=== PATIENT | female | born 1935 | race Caucasian/White ===

== ENCOUNTER 2022-07-30 15:19 | Emergency (ER) | payer MEDICARE, SELFPAY ==
[2022-07-30 16:19] LABS: #Basophils 0.1 thou/uL (0.0-0.2); #Eosinphils 0.6 thou/uL (0.0-0.7); #Lymphocytes 1.5 thou/uL (1.20-3.40); #Neutrophils 4.8 thou/uL (1.40-6.50); %Basophils 0.7 % (0.0-1.0); %Lymphocytes 18.8 % (21.0-51.0); %Monocytes 12.8 % (0.0-10.0); %Neutrophils 60.7 % (42.0-75.0); Hemoglobin 14.8 g/dL (12.0-16.0); Mean Corpuscular HGB CONC 33.7 g/dL (32.0-36.0); Mean Corpuscular Hemoglobin 30.9 pg (27.0-31.0); Mean Corpuscular Volume 91.8 fl (78.0-98.0); Mean Platelet Volume 8.3 fL (7.4-10.4); Platelet Count 213 10x3/uL (130-400); RBC Distribution Width 12.5 % (11.5-14.5); Red Blood Cell (RBC) Count 4.78 mill/uL (4.20-5.40)
[2022-07-30 16:40] LABS: ALT (SGPT) 10 U/L (8-55); AST (SGOT) 20 U/L (5-34); Albumin 4.2 g/dL (3.4-4.8); Alkaline Phosphatase 90 U/L (40-110); Anion Gap 15 mmol/L (10-20); BUN (Urea Nitrogen) 19 mg/dL (9.8-20.1); Bilirubin, Total 0.7 mg/dL (0.2-1.2); Calc. Creatinine Clearance 0 mL/min (70-130); Calcium 10.1 mg/dL (7.8-10.44); Carbon Dioxide 24 mmol/L (23-31); Chloride 103 mmol/L (98-107); Estimated GFR 55; Globulin 3.6 g/dL (2.4-3.5); Glucose 95 mg/dL (83-110); Potassium 4.6 mmol/L (3.5-5.1); Protein, Total 7.8 g/dL (5.8-8.1); Sodium 137 mmol/L (136-145)
[2022-07-30 17:06] LABS: Bacteria/HPF 3+ HPF (None Seen); Bilirubin Negative (Negative); Blood, Urine Trace (Negative); Clarity Clear (Clear); Glucose, Urine (Dipstick) Normal (Negative); Ketone, Urine Negative (Negative); Leukocyte 500 Leu/uL (Negative); Nitrite Negative (Negative); Protein, Urine (Dipstick) Negative (Neg-Trace); Specific Gravity, Urine 1.017 (1.002-1.036); Urobilinogen Normal mg/dL (Less than 2)
[2022-07-30] MEDS ORDERED: cefTRIAXone (ROCEPHIN) 2 GM VIAL ONE (17:46)
== END 2022-07-30 19:28 | disposition home or self-care (01) ==
LOC: ERS 15:19
DX: N39.0 Urinary tract infection, site not specified (principal); E78.5 Hyperlipidemia, unspecified; I10 Essential (primary) hypertension; Z79.899 Other long term (current) drug therapy; Z79.82 Long term (current) use of aspirin
CPT/HCPCS: 36415; 70450; 71045; 80053; 81003; 81015; 83605; 84443; 84484; 85025; 87086; 93005; 96365; J0696

== ENCOUNTER 2022-12-30 07:31 | Day surgery (SDC) | payer MEDICARE ==
[2022-12-28 14:28] VITALS: BMI 29.2
[2022-12-28 14:34] LABS: Hematocrit 44.8 % (34.9-44.5); Hemoglobin 14.3 g/dL (12.0-15.5); Mean Corpuscular HGB CONC 31.9 g/dL (32.0-36.0); Mean Corpuscular Hemoglobin 29.2 pg (27.0-33.0); Mean Corpuscular Volume 91.4 fl (81.6-98.3); Mean Platelet Volume 10.6 fl (7.4-10.4); Platelet Count 255 10x3/uL (150-450); RBC Distribution Width 15.3 % (11.5-14.5); White Blood Cell (WBC) Count 6.5 10x3/uL (3.5-10.5)
[2022-12-28 15:07] LABS: Anion Gap 12 mmol/L (10-20); BUN (Urea Nitrogen) 17 mg/dL (9.8-20.1); Calc. Creatinine Clearance 32 mL/min (70-130); Calcium 9.7 mg/dL (7.8-10.44); Carbon Dioxide 27 mmol/L (23-31); Chloride 105 mmol/L (98-107); Estimated GFR 39; Glucose 92 mg/dL (83-110); Potassium 4.7 mmol/L (3.5-5.1); Sodium 139 mmol/L (136-145)
[2022-12-28 15:24] LABS: INR-International Normal Ratio 1.1; PTT 29.2 sec (22.0-33.0); Prothrombin Time 11.4 sec (9.5-12.1)
[2022-12-30] MEDS ORDERED: Ciprofloxacin Lactate/D5W 400 mg/200 ml Premix ONE (08:10)
[2022-12-30] MEDS ORDERED: Lidocaine 1% (PF) 30 ML VIAL ONE (08:10)
[2022-12-30] MEDS ORDERED: Clindamycin/D5W 900 mg/50 ml Premix Bag ONE (08:10)
[2022-12-30] MEDS ORDERED: Midazolam HCl 2 mg/2 ml Vial ONE (09:43)
[2022-12-30] MEDS ORDERED: Ketamine 50 MG/ML (10ML VIAL) ONE (09:43)
[2022-12-30] MEDS ORDERED: fentaNYL 50 mcg/mL 1 mL Vial ONE ×2 (09:43→14:18)
[2022-12-30] MEDS ORDERED: Propofol 500 MG/50 ML VIAL ONE (09:44)
[2022-12-30] MEDS ORDERED: Vasopressin 20 UNITS/ML VIAL ONE (09:44)
[2022-12-30] MEDS ORDERED: Dexmedetomidine 200 MCG/2 ML VIAL ONE (09:44)
[2022-12-30] MEDS ORDERED: LevoFLOXacin 500 mg/D5W 100 ML BAG ONE ×2 (10:55→10:59)
[2022-12-30] MEDS ORDERED: Gentamicin 80 MG/2 ML VIAL ONE (10:59)
[2022-12-30] MEDS ORDERED: Lidocaine 1% PF 5 ML VIAL ONE (11:13)
[2022-12-30] MEDS ORDERED: Ondansetron PF 4 MG/2 ML Vial ONE ×3 (11:13→14:00)
[2022-12-30] MEDS ORDERED: Acetaminophen 325 MG TAB PO PRN (11:54)
[2022-12-30] MEDS ORDERED: Clindamycin 150 MG CAP PO SCH (12:00)
== END 2022-12-30 18:20 | disposition home or self-care (01) ==
LOC: SDC 07:31
PROVIDERS: ATTEND Internal Medicine Cardiovascular Disease
PROC: 0JPT0PZ Removal of Cardiac Rhythm Related Device from Trunk Subcutaneous Tissue and Fascia, Open Approach (ICD-10-PCS; principal; 2022-12-30)
PROC: 0JH606Z Insertion of Pacemaker, Dual Chamber into Chest Subcutaneous Tissue and Fascia, Open Approach (ICD-10-PCS; 2022-12-30)
DX: I48.0 Paroxysmal atrial fibrillation (principal); I48.91 Unspecified atrial fibrillation; I49.5 Sick sinus syndrome; I11.0 Hypertensive heart disease with heart failure; I50.22 Chronic systolic (congestive) heart failure; E78.5 Hyperlipidemia, unspecified; F03.90 Unspecified dementia, unspecified severity, without behavioral disturbance, psychotic disturbance, mood disturbance, and anxiety; Z79.01 Long term (current) use of anticoagulants; Z91.040 Latex allergy status; Z88.0 Allergy status to penicillin; Z88.2 Allergy status to sulfonamides; Z79.82 Long term (current) use of aspirin; Z79.899 Other long term (current) drug therapy
CPT/HCPCS: 33208; 71045; 80048; 85027; 85610; 85730; 93005; C1769; C1785; C1898 ×2; J3010; J0744; J1580; J1956; J2001; J2250; J2405; J2704; J3490

== ENCOUNTER 2023-02-02 00:57 | Inpatient (IN) | payer MEDICARE, SELFPAY ==
[2023-02-02 01:25] LABS: #Eosinphils 0.1 thou/uL (0.0-0.7); #Neutrophils 5.2 thou/uL (1.40-6.50); %Basophils 0.2 % (0.0-1.0); %Eosinophils 1.4 % (0.0-10.0); %Lymphocytes 24.7 % (21.0-51.0); %Neutrophils 61.3 % (42.0-75.0); Hematocrit 47.4 % (36.0-47.0); Hemoglobin 15.6 g/dL (12.0-16.0); Mean Corpuscular HGB CONC 32.9 g/dL (32.0-36.0); Mean Corpuscular Hemoglobin 29.8 pg (27.0-31.0); Mean Corpuscular Volume 90.6 fl (78.0-98.0); Mean Platelet Volume 10.3 fL (7.4-10.4); Platelet Count 195 10x3/uL (130-400); RBC Distribution Width 14.4 % (11.5-14.5); Red Blood Cell (RBC) Count 5.23 mill/uL (4.20-5.40); White Blood Cell (WBC) Count 8.5 10x3/uL (4.8-10.8)
[2023-02-02] MEDS ORDERED: Ondansetron PF 4 MG/2 ML Vial ONE (01:29)
[2023-02-02] MEDS ORDERED: niCARdipine 25 MG/10 ML SDV ONE (01:30)
[2023-02-02 01:47] LABS: INR-International Normal Ratio 1.1; Prothrombin Time 14.2 sec (12.0-14.7)
[2023-02-02 01:48] LABS: ALT (SGPT) 22 U/L (8-55); AST (SGOT) 23 U/L (5-34); Albumin 4.8 g/dL (3.4-4.8); Alkaline Phosphatase 88 U/L (40-110); Anion Gap 16 mmol/L (10-20); BUN (Urea Nitrogen) 17 mg/dL (9.8-20.1); Bilirubin, Total 0.8 mg/dL (0.2-1.2); Calc. Creatinine Clearance 0 mL/min (70-130); Calcium 10.1 mg/dL (7.8-10.44); Carbon Dioxide 24 mmol/L (23-31); Chloride 103 mmol/L (98-107); Estimated GFR 49; Globulin 3.3 g/dL (2.4-3.5); Glucose 106 mg/dL (83-110); Potassium 3.9 mmol/L (3.5-5.1); Protein, Total 8.1 g/dL (5.8-8.1); Sodium 139 mmol/L (136-145)
[2023-02-02 01:52] LABS: Troponin I Less than 0.010 ng/mL (< 0.028)
[2023-02-02 01:53] LABS: PTT 22.3 sec (22.9-36.1)
[2023-02-02] MEDS ORDERED: niCARdipine 25 MG in Sodium Chloride 0.9% 250 ML 250 ML IVPB PRN ×2 (01:53→03:38)
[2023-02-02] MEDS ORDERED: Electrolyte Replacement Protocol 1 EACH IVPB SCH (01:53)
[2023-02-02] MEDS ORDERED: Ventilator Sedation Protocol 1 EACH FS SCH (02:00)
[2023-02-02] MEDS ORDERED: HUMAN PROTHROMBIN COMPLX IV SCH (02:00)
[2023-02-02 02:05] LABS: Actual Bicarbonate (HCO3a) 23.7 mEq/L (22-28); Analyzer IN Cardio ER; Base Excess (BEa) 2.4 mEq/L (-2.0 to +3.0); CO2 Tension 28.6 mmHg (35.0-45.0); Calcium, Ionized (arterial) 1.22 mmol/L (1.12-1.30); Carboxyhemoglobin (COHb) 0.1 gm% (0.0-3.0); Hematocrit-ABG 45 % (36.0-47.0); Hemoglobin (Hb) 15.4 g/dL (12.0-16.0); O2 Tension (PaO2), arterial 324.2 mmHg (> 60.0); Potassium - ABG Lab 3.62 mmol/L (3.70-5.30); pH, Arterial 7.537 (7.35-7.45)
[2023-02-02] MEDS ORDERED: Acetaminophen 650 MG Suppository PR PRN (02:06)
[2023-02-02 02:09] LABS: Puncture Site LRA
[2023-02-02] MEDS ORDERED: Lorazepam 2 MG/ML VIAL SLOW IVP PRN (02:15)
[2023-02-02] MEDS ORDERED: Fentanyl BOLUS 250 ML IVPB PRN (02:15)
[2023-02-02] MEDS ORDERED: Morphine 2 MG/ML VIAL SLOW IVP PRN (02:15)
[2023-02-02] MEDS ORDERED: Propofol 1,000 MG/100 ML VIAL IV PRN (02:15)
[2023-02-02] MEDS ORDERED: Propofol BOLUS 1,000 MG/100 ML VIAL IV PRN (02:15)
[2023-02-02] MEDS ORDERED: Fentanyl CADD 100 ML IV SCH (02:15)
[2023-02-02] MEDS ORDERED: DISCONTINUE PREVIOUS NARCOTIC PAIN MEDICATIONS AND BENZODIAZEPINES FS SCH (02:15)
[2023-02-02] MEDS ORDERED: Labetalol HCl 100 MG/20 ML VIAL SLOW IVP PRN (03:57)
[2023-02-02] MEDS ORDERED: hydrALAZINE 20 MG/ML VIAL SLOW IVP PRN (03:57)
[2023-02-02 04:13] VITALS: BMI 28.0
[2023-02-02 04:20] LABS: #Monocytes 0.9 thou/uL (0.11-0.59); #Neutrophils 8.8 thou/uL (1.40-6.50); %Basophils 0.3 % (0.0-1.0); %Eosinophils 0.3 % (0.0-10.0); %Lymphocytes 18.4 % (21.0-51.0); %Monocytes 7.3 % (0.0-10.0); %Neutrophils 73.4 % (42.0-75.0); Hematocrit 46.2 % (36.0-47.0); Hemoglobin 15.2 g/dL (12.0-16.0); Mean Corpuscular HGB CONC 32.9 g/dL (32.0-36.0); Mean Corpuscular Hemoglobin 29.5 pg (27.0-31.0); Mean Corpuscular Volume 89.5 fl (78.0-98.0); Mean Platelet Volume 10.2 fL (7.4-10.4); Platelet Count 215 10x3/uL (130-400); RBC Distribution Width 14.1 % (11.5-14.5); Red Blood Cell (RBC) Count 5.16 mill/uL (4.20-5.40)
[2023-02-02 04:44] LABS: Bacteria/HPF None Seen HPF (None Seen); Bilirubin Negative (Negative); Blood, Urine Negative (Negative); CAUTI Indications for Culture Urological Procedure; Clarity Clear (Clear); Glucose, Urine (Dipstick) Normal (Negative); Ketone, Urine Trace mg/dL (Negative); Leukocyte Negative Leu/uL (Negative); Nitrite Negative (Negative); Protein, Urine (Dipstick) 20 mg/dL (Neg-Trace); RBC/HPF 0-3 HPF (0-3); Specific Gravity, Urine 1.014 (1.002-1.036); Squamous Epithelial None Seen HPF (0-3); Urobilinogen Normal mg/dL (Less than 2); WBC/HPF 0-3 HPF (0-3)
[2023-02-02 04:46] LABS: Anion Gap 17 mmol/L (10-20); BUN (Urea Nitrogen) 17 mg/dL (9.8-20.1); Calc. Creatinine Clearance 41 mL/min (70-130); Calcium 10.4 mg/dL (7.8-10.44); Carbon Dioxide 21 mmol/L (23-31); Chloride 102 mmol/L (98-107); Estimated GFR 55; Glucose 153 mg/dL (83-110); Potassium 3.6 mmol/L (3.5-5.1); Sodium 136 mmol/L (136-145)
[2023-02-02 04:50] LABS: Urine Culture Reflex Yes Yes
[2023-02-02] MEDS ORDERED: Sodium Chloride 0.9% 500 ML IV SCH (05:30)
[2023-02-02] MEDS ORDERED: FLU VACC QS2023(65UP)/MF59C/PF 60 MCG/0.5 ML SYRINGE IM ONE (09:00)
[2023-02-02] MEDS ORDERED: Famotidine/PF 20 mg/2ml Vial SLOW IVP SCH (09:00)
[2023-02-02] MEDS ORDERED: Sodium Chloride 0.9% 1,000 ML IV SCH (10:45)
[2023-02-02 14:39] VITALS: BP 120/72
[2023-02-02 20:36] VITALS: TEMP 99.6
== END 2023-02-02 20:51 | disposition hospice, inpatient (51) | DRG 82 ==
LOC: ERS 00:57 → CCU 02:18
PROVIDERS: ADMIT Student in an Organized Health Care Education/Training Program; ATTEND Family Medicine
PROC: 0BH17EZ Insertion of Endotracheal Airway into Trachea, Via Natural or Artificial Opening (ICD-10-PCS; principal; 2023-02-02)
PROC: 5A1935Z Respiratory Ventilation, Less than 24 Consecutive Hours (ICD-10-PCS; 2023-02-02)
PROC: 4A133R1 Monitoring of Arterial Saturation, Peripheral, Percutaneous Approach (ICD-10-PCS; 2023-02-02)
PROC: 30283B1 Transfusion of Nonautologous 4-Factor Prothrombin Complex Concentrate into Vein, Percutaneous Approach (ICD-10-PCS; 2023-02-02)
DX: S06.2XAA Diffuse traumatic brain injury with loss of consciousness status unknown, initial encounter (principal); J96.01 Acute respiratory failure with hypoxia; I16.1 Hypertensive emergency; I48.20 Chronic atrial fibrillation, unspecified; G93.40 Encephalopathy, unspecified; G81.91 Hemiplegia, unspecified affecting right dominant side; Z51.5 Encounter for palliative care; Z66 Do not resuscitate; I25.10 Atherosclerotic heart disease of native coronary artery without angina pectoris; I10 Essential (primary) hypertension; E78.5 Hyperlipidemia, unspecified; Z95.5 Presence of coronary angioplasty implant and graft; Z88.2 Allergy status to sulfonamides; Z88.0 Allergy status to penicillin; Z91.040 Latex allergy status; Z79.82 Long term (current) use of aspirin; Z79.899 Other long term (current) drug therapy; Z79.01 Long term (current) use of anticoagulants; W19.XXXA Unspecified fall, initial encounter
CPT/HCPCS: 36415; 36416; 36600; 70450; 71045; 72125; 80053; 81001; 82805; 84484; 85025; 85610; 85730; 87086; 93005; 94002; 95711; 95819; 95957; J2060; J2405; J2704; J7030; J7050; J7168; S0028

== ENCOUNTER 2023-02-02 20:51 | Inpatient (IN) | payer OTHER ==
[2023-02-02] MEDS ORDERED: Morphine 4 MG/ML VIAL SLOW IVP PRN ×2 (21:05→21:07)
[2023-02-02] MEDS ORDERED: Morphine 2 MG/ML VIAL SLOW IVP PRN (21:08)
[2023-02-02] MEDS ORDERED: Ondansetron PF 4 MG/2 ML Vial IVP PRN (21:08)
[2023-02-02 21:10] VITALS: BMI 28.0
[2023-02-02] MEDS ORDERED: Lorazepam 2 MG/ML VIAL SLOW IVP PRN (21:10)
[2023-02-02] MEDS ORDERED: Scopolamine 1 mg/72 hour Patch TOP SCH (22:00)
[2023-02-03] MEDS: Lorazepam 2 MG/ML VIAL SLOW IVP SCH ×6 (00:26→20:21)
[2023-02-03] MEDS: Morphine 4 MG/ML VIAL SLOW IVP SCH ×3 (13:20→20:21)
[2023-02-04] MEDS: Morphine 4 MG/ML VIAL SLOW IVP SCH ×6 (00:26→20:23)
[2023-02-04] MEDS: Lorazepam 2 MG/ML VIAL SLOW IVP SCH ×6 (00:28→20:23)
[2023-02-04] MEDS ORDERED: Scopolamine 1 mg/72 hour Patch TOP SCH (09:00)
[2023-02-04] MEDS: Atropine Sulfate 1% Ophth Soln 5 ml Bottle SL PRN ×4 (14:21→23:55)
[2023-02-05] MEDS: Morphine 4 MG/ML VIAL SLOW IVP SCH ×2 (00:42→05:35)
[2023-02-05] MEDS: Lorazepam 2 MG/ML VIAL SLOW IVP SCH ×2 (00:42→05:35)
[2023-02-05] MEDS: Atropine Sulfate 1% Ophth Soln 5 ml Bottle SL PRN ×2 (04:09→05:36)
[2023-02-05 08:42] VITALS: BP 65/38; TEMP 102.9
== END 2023-02-05 10:30 | disposition expired | DRG 951 ==
LOC: CCU 20:51 → MSONC 02-03 00:23
PROVIDERS: ADMIT Family Medicine; ATTEND Family Medicine
DX: Z51.5 Encounter for palliative care (principal); J96.00 Acute respiratory failure, unspecified whether with hypoxia or hypercapnia; I62.9 Nontraumatic intracranial hemorrhage, unspecified; I48.20 Chronic atrial fibrillation, unspecified; G93.40 Encephalopathy, unspecified; E78.5 Hyperlipidemia, unspecified; I10 Essential (primary) hypertension; I25.10 Atherosclerotic heart disease of native coronary artery without angina pectoris
CPT/HCPCS: J2060; J2270